=== PATIENT | male | born 1950 | race Caucasian/White ===

== ENCOUNTER 2019-07-09 13:08 | Emergency (ER) | payer MEDICARE, OTHER ==
[~2019-07-09] VITALS: Ht 182.9 cm; Wt 77.3 kg
[~2019-07-09 13:08] MED LIST: ALBU8HFA PO; PRED50TA PO
[2019-07-09 13:58] VITALS: BP 140/90
== END 2019-07-09 14:52 | disposition home or self-care (01) ==
LOC: ER 13:08
DX: R09.89 Other specified symptoms and signs involving the circulatory and respiratory systems (principal); F20.9 Schizophrenia, unspecified; Z79.899 Other long term (current) drug therapy
CPT/HCPCS: 70360; 71046; 74018; 99283

== ENCOUNTER 2020-05-28 06:43 | Emergency (ER) | payer OTHER, MEDICARE ==
[~2020-05-28] VITALS: Ht 182.9 cm; Wt 77.3 kg
[2020-05-28 06:54] VITALS: BP 100/80
[2020-05-28] MEDS ORDERED: ketorolac tromethamine 15mg/ml inj. IV ONE (09:25)
[2020-05-28] MEDS ORDERED: METH-360 PO (09:27)
[2020-05-28] MEDS ORDERED: IBUP-1985 PO (09:27)
== END 2020-05-28 09:37 | disposition home or self-care (01) ==
LOC: ER 06:43
DX: S33.5XXA Sprain of ligaments of lumbar spine, initial encounter (principal); F20.9 Schizophrenia, unspecified; Z79.899 Other long term (current) drug therapy; Y93.16 Activity, rowing, canoeing, kayaking, rafting and tubing; Y93.89 Activity, other specified; Y92.828 Other wilderness area as the place of occurrence of the external cause; Y99.8 Other external cause status
CPT/HCPCS: 96374; 99283; J1885

== ENCOUNTER 2021-12-28 09:03 | Emergency (ER) | payer OTHER, MEDICARE ==
[~2021-12-28] VITALS: Ht 182.9 cm; Wt 82.0 kg
[~2021-12-28 09:03] MED LIST changes: +IBUP-1985 PO; +METH-360 PO
[2021-12-28] MEDS ORDERED: HYDR-3965 PO (09:57)
--- NOTE | 2021-12-28 11:10 | NUR ---
PT STANDING IN DOORWAY REQUESTING TO LEAVE. PT REPORTS PAIN 04/19. WILL INFORM PROVIDER.
[2021-12-28 11:15] VITALS: BP 102/92
== END 2021-12-28 11:19 | disposition home or self-care (01) ==
LOC: ER 09:03
DX: M25.511 Pain in right shoulder (principal); F20.9 Schizophrenia, unspecified; Z79.899 Other long term (current) drug therapy
CPT/HCPCS: 73030; 99284

== ENCOUNTER 2022-12-13 10:00 | Emergency (ER) | payer OTHER, MEDICARE ==
[~2022-12-13] VITALS: Ht 182.9 cm; Wt 79.0 kg
[2022-12-13 10:32] VITALS: BP 124/68
[2022-12-13] MEDS ORDERED: TRAM50TA2 PO ×2 (12:31→12:32)
== END 2022-12-13 12:54 | disposition home or self-care (01) ==
LOC: ER 10:01
DX: S32.020A Wedge compression fracture of second lumbar vertebra, initial encounter for closed fracture (principal); M54.50 Low back pain, unspecified; F20.9 Schizophrenia, unspecified; Z79.899 Other long term (current) drug therapy; X58.XXXA Exposure to other specified factors, initial encounter; Y93.89 Activity, other specified; Y92.89 Other specified places as the place of occurrence of the external cause; Y99.8 Other external cause status
CPT/HCPCS: 72100; 99283